=== PATIENT | female | born 1930 | race Caucasian/White ===

== ENCOUNTER → 2016-10-10 | Outpatient (CLI) | payer MEDICARE, OTHER ==
[~2016-10-10] MED LIST: BISO1TAB3 PO; DILT240C PO; ENXP80I.8 SC; HYDR-3702 PO; PHN100C PO; TRM50T PO; WRF5T PO
--- NOTE | 2016-10-10 16:08 | Diagnostic Imaging Report ---
INDICATION: Left lower extremity edema. FINDINGS: Left lower extremity venous Doppler with color-flow Doppler, compression, augmentation and grayscale imaging demonstrates no evidence of a DVT. No fluid collections are identified. There is a 19 x 6 mm lymph node in the left groin with normal architecture consistent with a reactive node. Mild subcutaneous edema is present. IMPRESSION: There is no evidence of a DVT. Dictated by: Dictated on workstation # [id number]
== END ==
LOC: RAD 15:01
PROVIDERS: ATTEND Family Medicine
DX: R60.0 Localized edema (principal)